=== PATIENT | female | born 1955 | race Caucasian/White ===

== ENCOUNTER 2018-12-22 05:24 | Day surgery (SDC) | payer OTHER ==
[~2018-12-22 05:24] MED LIST: ADALAT CC60 MG PO; CARVEDILOL25 MG PO; GLIPIZIDE XL10 MG PO; HUMALOG100 UNIT/1; LOSARTAN-HCTZ1 EACH PO; METFORMIN HCL1000 M2 PO; SIMVASTATIN20 MG PO
== END 2018-12-22 11:25 | disposition home or self-care (01) ==
LOC: CIR.AMB 05:24
DX: D12.9 Benign neoplasm of anus and anal canal (principal)